=== PATIENT | male | born 1990 ===

== ENCOUNTER 2018-05-31 21:58 | Emergency (ER) | payer BC ==
[~2018-05-31] VITALS: Ht 188 cm; Wt 79.4 kg
[2018-05-31] MEDS ORDERED: ALBU90OI61 INH (23:21)
[2018-05-31] MEDS ORDERED: FLUT1DIS5 INH (23:21)
[2018-05-31] MEDS ORDERED: EPIPEN0.3 MG/0.3 IM (23:27)
[2018-05-31] MEDS ORDERED: CETI5 PO (23:28)
[2018-05-31] MEDS ORDERED: FLONASE ALLERG9.9 ML (23:28)
[2018-05-31] MEDS ORDERED: Pepcid40 MG PO (23:29)
== END 2018-06-01 00:05 | disposition home or self-care (01) ==
LOC: ER 21:58
DX: T18.128A Food in esophagus causing other injury, initial encounter (principal); K21.9 Gastro-esophageal reflux disease without esophagitis
CPT/HCPCS: 36415; 96374; 96375; 99284-25; J1610; J1885; J2405

== ENCOUNTER 2019-03-20 08:14 | Day surgery (SDC) | payer BC ==
[~2019-03-20] VITALS: Ht 185.4 cm; Wt 81.2 kg
[~2019-03-20 08:14] MED LIST: ALBU90OI61 INH; CETI5 PO; EPIPEN0.3 MG/0.3 IM; FLONASE ALLERG9.9 ML; FLUT1DIS5 INH; Pepcid40 MG PO
== END 2019-03-20 09:55 | disposition home or self-care (01) ==
LOC: ORSCSDS 08:14
PROVIDERS: Internal Medicine Gastroenterology
PROC: 0DB58ZX Excision of Esophagus, Via Natural or Artificial Opening Endoscopic, Diagnostic (ICD-10-PCS; principal; 2019-03-20 09:15)
PROC: 0D758ZZ Dilation of Esophagus, Via Natural or Artificial Opening Endoscopic (ICD-10-PCS; principal; 2019-03-20 09:15)
DX: R13.10 Dysphagia, unspecified (principal); B37.81 Candidal esophagitis; K22.2 Esophageal obstruction; R23.4 Changes in skin texture; K21.9 Gastro-esophageal reflux disease without esophagitis; J45.909 Unspecified asthma, uncomplicated; Z79.899 Other long term (current) drug therapy
CPT/HCPCS: 88305; 88312; J2704; J7120